=== PATIENT | female | born 1965 | race Caucasian/White ===

== ENCOUNTER 2023-12-24 04:14 | Emergency (ER) | payer OTHER, SELFPAY ==
[2023-12-24 04:26] VITALS: BP 133/90; PULSE 102; RESP 16; TEMP 36.7; O2SAT 96; BMI 33.1
--- NOTE | 2023-12-24 04:54 | CRLHL7_ITS ---
For Patients: As a result of the Century Cures Act, medical imaging exams and procedure reports are released immediately into your electronic medical record. You may view this report before your referring provider. If you have questions, please contact your health care provider. Indication: Fall with left-sided pain Technique: The examination consists of an AP view of the pelvis and a lateral view of each hip. Comparison: None Findings: Bone mineral density is decreased. There are degenerative changes of the visualized lower lumbar spine. Bilateral hip arthroplasties are noted. There is no visible acute fracture, dislocation or destructive process involving the pelvis or either hip. No visible complication of the arthroplasties. No abnormal periimplant lucency Impression: Demineralization and degenerative change. Bilateral hip arthroplasties. No visible acute fracture, dislocation or destructive process. Dictated by Everette Mi MD @ 12/24/2023 6:29:45 AM (Electronically Signed)
--- NOTE | 2023-12-24 04:54 | CRLHL7_ITS ---
For Patients: As a result of the Cures Act, medical imaging exams and procedure reports are released immediately into your electronic medical record. You may view this report before your referring provider. If you have questions, please contact your health care provider. Indication: Injury with pain Technique: Three views of the cervical spine were acquired Comparison: None Findings: Straightening. Degenerative changes. Postsurgical changes related to anterior cervical fusion. Atherosclerotic vascular calcifications. No visible acute osseous abnormality Impression: Straightening. Degenerative changes. Postsurgical changes. No visible acute osseous abnormality. Dictated by Everette Mi MD @ 12/24/2023 6:17:43 AM (Electronically Signed)
--- NOTE | 2023-12-24 04:54 | CRLHL7_ITS ---
For Patients: As a result of the Cures Act, medical imaging exams and procedure reports are released immediately into your electronic medical record. You may view this report before your referring provider. If you have questions, please contact your health care provider. Indication: Injury with pain Technique: A total of three-view of the left shoulder were acquired. Comparison: None Findings: Bones: Alignment is normal. No fractures or bone lesions. Joint spaces: No dislocation. Degenerative changes of the acromioclavicular joint. Cystic degenerative change at the greater tuberosity. Soft tissues: Unremarkable. Impression: Degenerative changes. No visible acute fracture, dislocation or destructive process. Dictated by Everette Mi MD @ 12/24/2023 6:27:53 AM (Electronically Signed)
--- NOTE | 2023-12-24 06:47 | ED_ITS ---
HPI - General Adult General Date Seen: 12/24/23 Chief complaint: Fall/Minor Trauma Stated complaint: Fell at work Time Seen by Provider: 12/24/23 04:39 Source: patient Mode of arrival: ambulatory Limitations: no limitations History of Present Illness HPI narrative: 58-year-old female with a history of bilateral hip replacements and neck surgery who was walking on a dim we lit sidewalk when she stumbled and fell landing on her left side. Her main pain is in the left hip area. She has been told that any time she falls she needs to have x-rays done to make sure she did disrupt her surgical hardware. She has little discomfort from a scrape on her left palm. She is ambulatory. She does not normally take any pain medications. She denies head injury or loss of consciousness. She has continued to stiffen up over the past several hours. Related Data Home Medications ?Medication ?Instructions ?Recorded ?Confirmed rosuvastatin 10 mg tablet 10 mg PO QPM 12/12/22 12/12/22 sertraline 100 mg tablet 100 mg PO DAILY 12/12/22 12/12/22 trazodone 50 mg tablet PO 12/12/22 Previous Rx's ?Medication ?Instructions ?Recorded prednisone 20 mg tablet 20 mg PO BID #6 tabs 12/12/22 oxycodone 5 mg tablet 5 mg PO Q8H PRN pain #10 tabs 12/24/23 Allergies Allergy/AdvReac Type Severity Reaction Status Date / Time amoxicillin [From Augmentin] Allergy Verified 12/12/22 08:47 clavulanic acid Allergy Verified 12/12/22 08:47 [From Augmentin] Review of Systems Narrative: Review of systems is outlined above otherwise noted to be negative. PFSH PFSH Social History Smoking Status: Current every day smoker What tobacco products do you use: cigarettes Smoking packs per day: 1 Smoking cigarettes per day: 20.0 Years smoked: 40 Smoking pack-years: 40.00 Do you use any of these nicotine containing products: None Second hand tobacco smoke exposure: No How often do you have a drink containing alcohol: monthly or less How many standard drinks containing alcohol do you have on a typical day: 1 or 2 How often do you have six or more drinks on one occasion: Less than monthly AUDIT-C Alcohol total score: 2 Non-prescribed substance use: marijuana (any form) service: No Exam Narrative: Exam Narrative: Vitals noted. Lungs are clear. Heart is regular rate rhythm without murmur. No abdominal tenderness. No CVA tenderness. She jumps dramatically with even light touch along her paraspinous muscles. There is no bony tenderness. He is also very sensitive with light touch along the lateral aspect of her left hip. She is able to stand and bear weight. Her range of motion is full as long as the movement is done very slowly. The there is a minor abrasion to the left palm. Wrist range of motion is full. Cervical range of motion does not elicit any radicular symptoms. She has some discomfort with movement of her left sh oulder but range of motion is full. No swelling or bruising is noted. No outward evidence of head trauma. Const: Vital Signs, click to edit/add: Vital Signs - 24 hr 12/24/23 04:26 Temperature 98.1 F Pulse Rate [Pulse Oximeter] 102 H Respiratory Rate 16 Blood Pressure [Ri ght Upper Arm] 133/90 H Pulse Oximetry 96 Oxygen Delivery Me thod Room Air Course Course ED Course: Patient seen and examined. I will low index of suspicion that there are any fractures. I did x-ray her left shoulder, cervical spine, pelvis including both hips. All of her x-rays are unremarkable. When I return to the exam room she is sleeping comfortably. Vital Signs Vital signs: Initial Vital Signs Temperature 98.1 F 12/24/23 04:26 Temperature Source Temporal Artery Scan 12/24/23 04:26 Pulse Rate 102 H 12/24/23 04:26 Respiratory Rate 16 12/24/23 04:26 Blood Pressure 133/90 H 12/24/23 04:26 Blood Pressure Mean 104 12/24/23 04:26 Blood Pressure Position Supine 12/24/23 04:26 Pulse Oximetry 96 12/24/23 04:26 Oxygen Delivery Method Room Air 12/24/23 04:26 Vital Signs Temperature 98.1 F 12/24/23 04:26 Pulse Rate 102 H 12/24/23 04:26 Respiratory Rate 16 12/24/23 04:26 Blood Pressure 133/90 H 12/24/23 04:26 Pulse Oximetry 96 12/24/23 04:26 Oxygen Delivery Method Room Air 12/24/23 04:26 Temperature 98.1 F 12/24/23 04:26 Pulse Rate 102 H 12/24/23 04:26 Respiratory Rate 16 12/24/23 04:26 Blood Pressure 133/90 H 12/24/23 04:26 Pulse Oximetry 96 12/24/23 04:26 Oxygen Delivery Method Room Air 12/24/23 04:26 Discharge Plan Discharge Clinical Impression: Contusion of multiple sites Patient Disposition: Home, Self-Care Condition: Stable Additional Instructions: Rest, ice, gentle stretching. Ibuprofen 600 mg three times daily, Tylenol 1000 mg three times daily. Oxycodone for refractory pain. Follow up with your PCP in 3-5 days if symptoms are worsening or not improving. Prescriptions: New oxycodone 5 mg tablet 5 mg PO Q8H PRN (Reason: pain) Qty: 10 0RF No Action trazodone 50 mg tablet PO sertraline 100 mg tablet 100 mg PO DAILY rosuvastatin 10 mg tablet 10 mg PO QPM prednisone 20 mg tablet 20 mg PO BID Qty: 6 0RF Follow Up/Referrals: MYLA RAYGOZA DO [Primary Care Provider] - Stand Alone Forms: [email or web address] Info Instructions
== END 2023-12-24 07:16 | disposition home or self-care (01) ==
PROVIDERS: Emergency Provider Family Medicine; PCP Student in an Organized Health Care Education/Training Program
DX: S70.02XA Contusion of left hip, initial encounter (principal); S60.222A Contusion of left hand, initial encounter; W01.10XA Fall on same level from slipping, tripping and stumbling with subsequent striking against unspecified object, initial encounter
CPT/HCPCS: 72040; 73030; 73521; 99282; 99283

== ENCOUNTER 2025-06-03 15:19 | Emergency (ER) | payer SELFPAY ==
[2025-06-03] VITALS (11 sets, daily range): BP systolic 102–123; BP diastolic 75–84; PULSE 79–98; RESP 20–24; TEMP 36.3; O2SAT 85–95
--- OUTSIDE RECORDS SUMMARY | 2025-06-03 15:21 | XMS_ITS | Clinical Summary ---
Author Organization [employer] [facility] Address [address] [place] [id number] Care Team Providers Care Geomatics Professor Name Role Phone Venkata [place] Ivonne Talley Unavailable Velia Mccallum PharmD Unavailable [phone] Allergies Active Allergy Reactions Criticality Noted Date Comments Amoxicillin-Pot Clavulanate Rash,Nausea And Vomiting 05/21/2008 Azithromycin Rash 01/12/2014 Medications cetirizine (ZYRTEC) 10 mg tabletIndications: Environmental allergies Take 1 tablet by mouth once daily. 90 tablet 3 05/17/20 15 Active durable medical equipment (DME)Indications:B ilateral primary osteoarthritis of hip,Chronic bilateral low back pain, unspecified whether sciatica present,Lumbar foraminal stenosis Can, quad cane or similar 1 Each 03/10/20 Active Elevated Toilet Seat with ArmsIndications:St atus post left hip replacement For home use. 1 Each 05/13/20 Active WalkerIndications: Status post left hip replacement Walker with front wheels for home use. 1 Each 05/13/20 Active Elevated Toilet Seat with ArmsIndications:St atus post right hip replacement For home use. 1 Each 08/04/19 Active WalkerIndications: Status post right hip replacement Walker with front wheels for home use. 1 Each 08/04/19 Active acetaminophen (TYLENOL EXTRA STRGTH) 500 mg tabletIndications: Status post right hip replacement Take 2 Tablets (1,000 mg) by mouth every 6 hours. Max acetaminophen dose: 4000mg in 24 hrs. 60 Tablet 2 3:08 PM IT HELP DESK MANAGER 08/04/19 22 Active gabapentin (NEURONTIN) 100 mg capsuleIndications :Foraminal stenosis of lumbar region,Foraminal stenosis of lumbosacral region,Peripheral sensory neuropathy TAKE 3 CAPSULES(300 MG) BY MOUTH TWICE DAILY 180 Capsule 2 03/26/20 22 Active Deep Sea Nasal [place] 0.65 % nasal solutionIndication s:Viral sinusitis INHALE 1 SPRAY INTO AFFECTED NOSTRILS EVERY 30 MINUTES IF NEEDED FOR NASAL CONGESTION. 44 mL 03/26/20 22 Active cholecalciferol (VITAMIN D3) 2,000 unit capsule Take 1 Capsule (2,000 units) by mouth once daily. 0 10/07/19 23 Active olopatadine (PATANOL) 0.1 % ophthalmic solution Place 1 Drop into both eyes once daily if needed. allergies 5 mL 11 10/07/19 23 Active fluticasone (50 mcg per actuation) nasal solution (FLONASE)Indicatio ns:Viral sinusitis Inhale 2 Sprays to both nostrils once daily if needed for Rhinitis. 16 g 10/07/19 23 Active medication order composer Balance of nature fruit and vegetable capsules daily 0 10/07/19 23 Active clindamycin (CLEOCIN) 300 mg capsuleIndications :Status post total hip replacement, right TAKE 2 CAPSULES BY MOUTH 1 HOUR PRIOR TO ANY DENTAL PROCEDURE, INCLUDING ROUTINE CLEANING. 6 Capsule 3 10/13/19 23 Active desonide 0.05% (TRIDESILON 0.05% CREAM) 0.05 % creamIndications:L ichen sclerosus Apply topically to affected area(s) two times daily. Apply to affected area twice daily 15 g 3 11/04/19 23 Active clobetasol cream 0.05% (TEMOVATE) 0.05 % creamIndications:L ichen sclerosus Apply topically to affected area(s) two times daily. Apply to affected area twice daily 30 g 11/04/19 23 Active polyethylene glycol-electrolyte (GOLYTELY) 236-22.74-6.74 -5.86 gram suspensionIndicati ons:Encounter for screening colonoscopy Drink 2 liters the day before the procedure and 2 liters 6 hours prior to procedure 4000 mL 01/07/20 23 Active cyclobenzaprine (FLEXERIL) 10 mg tabletIndications: Bilateral primary osteoarthritis of hip TAKE 1 TABLET(10 MG) BY MOUTH THREE TIMES DAILY 90 Tablet 1 02/02/20 23 Active traZODone (DESYREL) 50 mg tabletIndications: Insomnia due to other mental disorder TAKE 2 TABLETS(100 MG) BY MOUTH AT BEDTIME NEEDED FOR SLEEP 180 Tablet 08/05/19 24 Active rosuvastatin (CRESTOR) 10 mg tabletIndications: Mixed hyperlipidemia TAKE 1 TABLET(10 MG) BY MOUTH AT BEDTIME 90 Tablet 11/03/19 24 Active sertraline (ZOLOFT) 100 mg tabletIndications: Adjustment disorder with mixed anxiety and depressed mood TAKE 1 TABLET(100 MG) BY MOUTH EVERY MORNING 90 Tablet 3 11/18/19 24 Active Active Problems Problem Noted Date Diagnosed Date Primary osteoarthritis of right hip 07/30/2021 Sleep disorder 05/12/2021 Overview (05/12/2021): Home med Adjustment disorder with mixed anxiety and depre ssed mood 04/12/2021 Lumbar radicular pain 02/06/2014 Osteoarthritis of left hip 02/06/2014 Lichen planus 07/02/2008 Immunizations Immunization Administration Dates Next Due AMB Influenza, IIV3 (Age >=3 years)(Flu Clinic Only) 05/21/2008 COVID-19 vaccine (Moderna 10 0mcg/0.5mL) PF, MDV 09/11/2020 Hepatitis B (Adult) 01/14/2001,09/20/2000 Hepatitis B, Unspecified 05/21/2018 Influenza Virus, Unspecified 05/16/2018 Influenza, IIV3 (Age >=3 years) 05/17/2013,05/23,06/03/2006 Influenza, IIV4 03/27/2021 Influenza,CCIIV4 PRESERV FREE 04/07/2022 Pneumococcal Conj 20-valent (Prevnar 20) 023 Pneumococcal Poly,23-Valent (Pneumovax) 03/27/20 21 Td (Age >=7 Years) 08/15/2002 Tdap 10/06/2022,08/30/2008 Tuberculin Skin Test, Unspecified 03/01/2020 Zoster (Shingrix-RZV, recombinant) 06/19/2021,09 /03/2021 Family History Medical History Relation Name Comments Heart Disease Daughter 5 PFO Diabetes Father Other Father emphysema, smok er Diabetes Maternal Grandfather Cancer-breast Maternal Grandmother breast cancer, 40's Diabetes Maternal Grandmother Cancer Mother ovarian cancer Diabetes Paternal Grandfather Diabetes Paternal Grandmother Asthma Sister 5 Diabetes Sister 6 Other Sister 7 endometriosis Other Sister 8 obesity in 2 cleemnt lf-sisters Relation Name Status Comments Brother 1 Alive Brother 2 Alive Daughter 1 Alive Daughter 2 Alive Daughter 3 Alive Daughter 4 Alive Daughter 5 Father (Age 69) Maternal Grandfather Maternal Grandmother Mother Alive Paternal Grandfather Paternal Grandmother Sister 1 Alive Sister 2 Alive Sister 3 Alive Sister 4 Alive Sister 5 Sister 6 Sister 7 Sister 8 Son 1 Alive Son 2 Alive Son 3 Alive Social History Tobacco Use Types Packs/Day Years Used Date Smoking Tobacco: Every Day Cigarettes 0.5 20 Smokeless Tobacco: Never Tobacco Cessation:Ready to Q uit: Yes; Counseling Given: Yes Alcohol Use Standard Drinks/Week Comments Not Currently 0 (1 standard drink = 0.6 oz pur e alcohol) PHQ-2 Answer Date Recorded PHQ-2 TOTAL SCORE 6 10/06/2022 Social Connections Answer Date Recorded Frequency of Communication with Friends and Fami ly Not on file 07/10/2021 Financial Resource Strain Answer Date R ecorded Difficulty of Paying Living Expenses Not on file 07/10/2021 Difficulty of Paying Living Expenses Not on file 07/10/2021 Comments No Sex and Gender Information Value Date Recorded Sex Assigned at Not on file Legal Sex Female 6:20 AM IT HELP DESK MANAGER Gender Identity Not on file Sexual Orientation Not on file 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 Not on file Not on file Not on file Obstetrics History Para Term AB IAB SAB Ectopic Multiple Livin g Live Births 9 7 7 2 2 Date Outcome GA Total Labor Labor/2nd/3rd Weight Sex Type Anes PTL Amanda A1 A5 Name Clin SAB SAB Term Term Term Term Term Term Term Last Filed Vital Signs Vital Sign Reading Time Taken Comments Blood Pressure 137/81 10/06/2022 9:30 AM CDT Pulse 76 10/06/2022 9:30 AM CDT Temperature 36.6 C (97.9 F) 08/04/2021 2:33 PM IT HELP DESK MANAGER Respiratory Rate 16 08/04/2021 2:33 PM IT HELP DESK MANAGER Oxygen Saturation 97% 10/06/2022 9:30 AM CDT Inhaled Oxygen Concentration - - Weight 100.3 kg (221 lb 3.2 oz) 10/06/2022 9:30 AM CDT Height 165.1 cm (5' 5) 10/06/2022 9:30 AM CDT Body Mass Index 36.81 10/06/2022 9:30 AM CDT Plan of Treatment Health Maintenance Due Date Last Done Comments Colonoscopy through age 75 10/01/2011 Mammogram for age 45-75 05/17/2014 05/17/2013 BMI (ht and wt on same day) for age 18+ 10/07/2023 10/06/2022, 05/09/2021 Depression screening for age 12+ 10/09/2023 10/08/2022, 10/08/2022, 10/06/2022, Additional history exists Influenza Vaccine (#1) 2025 , 03/27/2021, 05/16/2018, Additional history exists Lipids for age 45-75 10/07/2027 10/06/2022, 05/19/20 12 Tetanus booster 10/06/2032 10/06/2022, 08/19, 08/15/2002 RSV vaccine for adults or (1 - 1-dose 75+ series) 2041 Hepatitis B series for 19+ Completed 05/21, 01/14/2001, 09/20/2000 Zoster (shingles) series for age 50+ Completed 06/19/2021, 03/27/2021 HIV for age 15-65 Completed 10/06/2022 Hepatitis C screening for ag e 18-79 Completed 10/06/2022 Pneumococcal series for age 50+ Completed 3, 03/27/2021 Medical Devices Implanted Type Area Pilot Can Router Device Identifier Shelf Expiration Date Model / Serial / Lot Screw Sm Joint 6.5x30mm Canclls Bone - [id number] Implanted:Qty: 1 on 05/12/2021 by Oni Ny MD at [facility].,Screw s & Plates Left: Hip [employer] 02/01/2024 1298-2799 -1 / / [id number] Screw Sm Joint 6.5x25mm Canclls Bone - [id number] Implanted:Qty: 1 on 05/12/2021 by Oni Ny MD at [facility].,Screw s & Plates Left: Hip [employer] 09/06/2025 / / [id number] Shell Hip Od50mm Trident Psl Cluster Clement - [id number] Implanted:Qty: 1 on 05/12/2021 by Oni Ny MD at [facility] Left: Hip [employer] 06/21/2024 542-11-50 E / / [id number] Screw Sm Joint 6.5x16mm Canclls Bone - [id number] Implanted:Qty: 1 on 05/12/2021 by Oni Ny MD at [facility] Left: Hip [employer] 01/15/2026 / / [id number] Stem Hip Sz 6 127 Deg Accolade Ii - [id number] Implanted:Qty: 1 on 05/12/2021 by Oni Ny MD at [facility] Left: Hip [employer] 03/21/2026 [id number] / / [id number] Head Hip Od36mm -2.5 Biolox Delta C-Taper Alumina Cer - [id number] Implanted:Qty: 1 on 05/12/2021 by Oni Ny MD at [facility] Left: Hip [employer] 02/27/2026 6570-0-43 6 / / [id number] Insert Trident X3 Polyethylene Implanted:Qty: 1 on 05/12/2021 by Oni Ny MD at [facility] Left: Hip 01/28/2026 723-10-36 E / / [id number] Description:INSERT TRIDENT X 3 POLYETHYLENE Screw Hip 6.5x15mm Rickie Low Profile Hex - [id number] Implanted:Qty: 1 on 08/04/2021 by Oni Ny MD at [facility] Right: Hip [employer] 12/18/2025 7121-9915 / / [id number] Insert Sz E 36mm 10 Deg Trident X3 - [id number] Implanted:Qty: 1 on 08/04/2021 by Oni yN MD at [facility] Right: Hip [employer] 05/04/2026 723-10-36 E / / [id number] Stem Hip Sz 6 127 Deg Accolade Ii - [id number] Implanted:Qty: 1 on 08/04/2021 by Oni Ny MD at [facility] Right: Hip [employer] 06/25/2026 5449-7555 / / [id number] Head Hip Od36mm +0 Biolox Delta C-Taper Alumina Cer - [id number] Implanted:Qty: 1 on 08/04/2021 by Oni Ny MD at [facility] Right: Hip [employer] 04/22/2026 6570-0-13 6 / / [id number] Acet Shell Trident Ii Multihole 52mm E Implanted:Qty: 1 on 08/04/2021 by Oni Ny MD at [facility] Right: Hip 10/24/2025 709-04-52 E / / [id number] Description:ACET SHELL TRIDE NT II MULTIHOLE 52MM E Screw Hip 6.5x35mm [employer] Low Profile Hex - [id number] Implanted:Qty: 1 on 08/04/2021 by Oni Ny MD at [facility] Right: Hip [employer] 4136-9183 / / [id number] Screw Hip 6.5x30mm Rickie Low Profile Hex - [id number] Implanted:Qty: 1 on 08/04/2021 by Oni Ny MD at [facility] Right: Hip [employer] 04/07/2026 6206-6775 / / [id number] Screw Hip 6.5x15mm Rickie Low Profile Hex - [id number] Implanted:Qty: 1 on 08/04/2021 by Oni Ny MD at [facility] Right: Hip [employer] 11/26/2025 4701-1178 / / YPA Screw Hip 6.5x15mm Rickie Low Profile Hex - [id number] Implanted:Qty: 1 on 08/04/2021 by Oni Ny MD at [facility] Right: Hip [employer] 11/26/2025 4559-2427 / / YJD Procedures Procedure Name Priority Date/Time Associated Diagnosis Comments LC HIV-1/O/2, 4TH GENERATION Routine 10/06/2022 10:55 AM CDT Screening for HIV (human immunodeficiency virus) LC HCV ANTIBODY RFX TO QUANT PCR Routine 10/06/2022 10:55 AM CDT Need for hepatitis C screening test LC LIPID PANEL AND CHOL/HDL RATIO Routine 10/06/2022 10:55 AM CDT Screening for lipid disorders XR MAMMO BILAT SCREEN FFDM (IA) Routine 05/17/2013 11:33 AM CDT Other screening mammogram from Last 3 Months or Most Recently Relevant to Health Maintenance Results * (ABNORMAL) LC LIPID PANEL AND CHOL/HDL RATIO (10/06/2022 10:55 AM CDT) Cholesterol, Total 231(H) 100 - 199 mg/dL 10/08/2022 8:37 AM CDT [facility] Triglycerides 250(H) 0 - 149 mg/dL 10/08/2022 8:37 AM CDT [facility] ([facility]) HDL Cholesterol 43 >39 mg/dL 8:37 AM CDT [facility] ([facility] VLDL Cholesterol Augustin 45(H) 5 - 40 mg/dL 10/08/2022 8:37 AM CDT [facility] ([facility] LDL Chol Calc (NIH) 143(H) 0 - 99 mg/dL 10/08/2022 8:37 AM CDT [facility] ([facility] T. Chol/HDL Ratio 5.4(H) 0.0 - 4.4 ratio 10/08/2022 8:37 AM CDT [facility] ([facility]) Comment: T. Chol/HDL Ratio Men Women 1/2 Avg.Risk 3.4 3.3 Avg.Risk 5.0 4.4 2X Avg.Risk 9.6 7.1 3X Avg.Risk 23.4 11.0 Blood BLOOD SPECIMEN / Unknown Venipuncture / Unknown 10/06/2022 10:55 AM CDT 10/06/2022 10:58 AM CDT Narrative [facility] ([facility]) - 10/08/2022 8:37 AM CDT Performed at: [facility] [address] [place], [place] [id number] Shower Screen Installer: Virgilio Grijalva MD, Phone: [phone] us Adei Shaqra DO SEND OUTS Final Result Performing Organization Address [facility] Co de Phone Number [facility] ([facility]) [address] [place] [address], [place] * LC HCV ANTIBODY RFX TO QUANT PCR (10/06/2022 10:55 AM CDT) Pathologist [facility] [place] HCV Ab Non Reactive Non Reactive 10/08/2022 11:06 PM CDT [facility] ([facility]) Blood BLOOD SPECIMEN / Unknown Venipuncture / Unknown 10/06/2022 10:55 AM CDT 10/06/2022 10:58 AM CDT Narrative [facility] ([facility]) - 10/08/2022 11:06 PM CDT Performed at: [address] [id number] Shower Screen Installer: Virgilio Grijalva MD, Phone: [phone] us Adei Jongqra DO LABORATORY Final Result Performing Organization Address [facility]/ZIP Co de Phone Number [facility] ([facility]) [address] [place] [address], [place] * LC HIV-1/O/2, 4TH GENERATION (10/06/2022 10:55 AM CDT) Pathologist [facility] [place] HIV Scr 4th Gen Non Reactive Non Reactive 10/09/2022 1:07 AM CDT [facility] ([facility] Comment: HIV Negative HIV-1/HIV-2 antibodies and HIV-1 p24 antigen were NOT detected. There is no laboratory evidence of HIV infection. Blood BLOOD SPECIMEN / Unknown Venipuncture / Unknown 10/06/2022 10:55 AM CDT 10/06/2022 10:58 AM CDT Narrative [facility] ([facility]) - 10/09/2022 1:07 AM CDT Performed at: 01 - [facility] [address] [place] [id number] Shower Screen Installer: Virgilio Grijalva MD, Phone: [phone] us Peterson Dickinson DO LABORATORY Final Result [facility] ([facility]) [facility] [place] [address], [place] * XR MAMMO BILAT SCREEN FFDM (05/17/2013 11:33 AM CDT) Anatomical Region Laterality Modality BREASTS, Breast Left, Breast Right Bilateral Mammography Impressions 05/18/2013 12:31 PM CDT There is no radiographic evidence for malignancy. Recommend annual mammograms. A lay language report of this examination will be provided to the patient. MAMMOGRAM ASSESSMENT: ACR 2 Benign Narrative 05/18/2013 12:31 PM CDT XR MAMMO BILAT SCREEN FFDM [G0202.0] CLINICAL HISTORY: This is an asymptomatic 47 y.o. patient. INDICATION FOR EXAM: Mammogram Screening. TECHNIQUE: CC & MLO views were obtained. This digital study was evaluated with the assistance of Computer-Aided Detection. COMPARISON FILMS: This is a baseline study. FINDINGS: Mammographically, the breast tissue is almost entirely fat (<25% glandular). No suspicious masses or microcalcifications. Benign appearing calcifications within left breast. Procedure Note Lalo Smith MD - 05/18/2013 XR MAMMO BILAT SCREEN FFDM [G0202.0] CLINICAL HISTORY: This is an asymptomatic 47 y.o. patient. INDICATION FOR EXAM: Mammogram Screening. TECHNIQUE: CC & MLO views were obtained. This digital study was evaluatedwith the assistance of Computer-Aided Detection. COMPARISON FILMS: This is a baseline study. FINDINGS: Mammographically, the breast tissue is almost entirely fat(<25% glandular). No suspicious masses or microcalcifications. Benignappearing calcifications within left breast. IMPRESSION: There is no radiographic evidence for malignancy. Recommendannual mammograms. A lay language report of this examination will be provided to the patient. MAMMOGRAM ASSESSMENT: ACR 2 Benign Samantha Lopez Khoa DO MAMMO Final Resu lt from Last 3 Months or Most Recently Relevant to Health Maintenance Insurance [facility] Advance Directives * Full Code (Latest Code Status on File) Date Activated Date Inactivated Comments 08/04/2021 5:56 AM 08/04/2021 5:11 PM Question Answer Comments Code Status Discussion: Not Discussed * Full Code Date Activated Date Inactivated Comments 05/12/2021 6:06 AM 05/13/2021 2:29 PM Question Answer Comments Code Status Discussion: Not Discussed Care Teams Geomatics Professor Relationship Specialty Start Date End Date [facility] [address] [place] [address] 08/04/21 Velia Mccallum, PharmD [address] [address] Pharmacology 11/03/22
--- NOTE | 2025-06-03 15:27 | ED.GENADULT ---
HPI - General Adult General Chief complaint: Shortness of Breath/Dyspnea Stated complaint: chest tightness, shortness of breath Time Seen by Provider: 06/03/25 15:20 History of Present Illness HPI narrative: This 59-year-old female comes in reporting worsening shortness of breath. She states that she has had a cough for a couple weeks but things became worse in the last day or so. She arrives here with oximetry at 85% on room air. She is a smoker and states that she quit 2 days ago. She does not take any medicines for breathing and is not on oxygen at home. She does not report any fevers. Related Data Home Medications ?Medication ?Instructions ?Recorded ?Confirmed rosuvastatin 10 mg tablet 10 mg PO QPM 12/12/22 12/12/22 trazodone 50 mg tablet PO 12/12/22 Previous Rx's ?Medication ?Instructions ?Recorded prednisone 20 mg tablet 20 mg PO BID #6 tabs 12/12/22 oxycodone 5 mg tablet 5 mg PO Q8H PRN pain #10 tabs 12/24/23 methylprednisolone 4 mg tablets in See Rx Instructions PO .COMPLEX 06/03/25 a dose pack (Medrol (Rolf)) #21 ea Allergies Allergy/AdvReac Type Severity Reaction Status Date / Time amoxicillin (From Augmentin) Allergy Verified 06/03/25 15:33 clavulanic acid (From Allergy Verified 06/03/25 15:33 Augmentin) Review of Systems Status of ROS: Reports: 10 or more systems reviewed and unremarkable except as noted in History and below Narrative: Constitutional: No fevers, no weight gain or loss. Eyes: No discharge. No vision changes. HENT: No congestion, no sore throat, no ear pain. Cardiovascular: No chest pain, no palpitations. Respiratory: Cough and shortness of breath. Gastrointestinal: No abdominal pain, no vomiting, no diarrhea. Genitourinary: No dysuria, no hematuria. Musculoskeletal: Normal range of motion. Skin: No rashes, no pruritis. Neurological: No dizziness, weakness, sensory change, speech change. Endo/Heme/Allergies: No bruising or bleeding. No polydipsia. Pysch: no suicidality, no anxiety, no insomnia. All other systems reviewed and are negative. PFSH PFSH Social History Smoking Status: Current every day smoker What tobacco products do you use: cigarettes Smoking packs per day: 1 Smoking cigarettes per day: 20.0 Years smoked: 40 Smoking pack-years: 40.00 Do you use any of these nicotine containing products: None Second hand tobacco smoke exposure: No How often do you have a drink containing alcohol: monthly or less How many standard drinks containing alcohol do you have on a typical day: 1 or 2 How often do you have six or more drinks on one occasion: Less than monthly AUDIT-C Alcohol total score: 2 Non-prescribed substance use: marijuana (any form) service: No Exam Narrative: Exam Narrative: Constitutional: Well-developed, well-nourished, no acute distress. HEENT: Normocephalic, atraumatic. Neck: Normal range of motion. Nontender. Supple. Heart: Regular. No murmurs. Normal rate. Intact distal pulses. Lungs: Bilateral rhonchi and wheezing with some use of accessory muscles for breathing. Frequent coughing. Abdomen: Normal bowel sounds. Nontender. No rebound tenderness. Genitalia: Deferred. Back: No midline tenderness. Normal range of motion. Extremities: Normal range of motion. No injury. Skin: Intact. No rash. Warm. No erythema or pallor. Neurologic: No altered sensation. No weakness. Alert and oriented. Psychiatric: No suicidality. No anxiety or depression. No insomnia. Nursing notes and vitals signs are reviewed. Const: Vital Signs, click to edit/add: Vital Signs - 24 hr 06/03/25 15:25 06/03/25 15:40 06/03/25 15:42 Temperature 97.3 F L Pulse Rate 97 Pulse Rate [Pulse Oximeter] 89 Respiratory Rate 24 Blood Pressure [Ri ght Upper Arm] 123/84 Pulse Oximetry 85 L 91 Oxygen Delivery Me thod Room Air Nasal Cannula Oxygen Flow Rate 2 06/03/25 15:45 06/03/25 16:01 06/03/25 16:16 Temperature Pulse Rate 96 98 82 Pulse Rate [Pulse Oximeter] Respiratory Rate Blood Pressure [Ri ght Upper Arm] Pulse Oximetry 95 92 Oxygen Delivery Me thod Oxygen Flow Rate 06/03/25 16:30 06/03/25 16:45 Temperature Pulse Rate 82 81 Pulse Rate [Pulse Oximeter] Respiratory Rate 22 Blood Pressure [Ri ght Upper Arm] Pulse Oximetry 94 92 Oxygen Delivery Me thod Room Air Oxygen Flow Rate Course Vital Signs Vital signs: Initial Vital Signs Temperature 97.3 F L 06/03/25 15:25 Temperature Source Temporal Artery Scan 06/03/25 15:25 Pulse Rate 89 06/03/25 15:25 Respiratory Rate 24 06/03/25 15:25 Blood Pressure 123/84 06/03/25 15:25 Blood Pressure Mean 97 06/03/25 15:25 Pulse Oximetry 85 L 06/03/25 15:25 Oxygen Delivery Method Room Air 06/03/25 15:25 Vital Signs Temperature 97.3 F L 06/03/25 15:25 Pulse Rate 89 06/03/25 15:25 Respiratory Rate 24 06/03/25 15:25 Blood Pressure 123/84 06/03/25 15:25 Pulse Oximetry 85 L 06/03/25 15:25 Oxygen Delivery Method Room Air 06/03/25 15:25 Temperature 97.3 F L 06/03/25 15:25 Pulse Rate 81 06/03/25 16:45 Respiratory Rate 22 06/03/25 16:30 Blood Pressure 123/84 06/03/25 15:25 Pulse Oximetry 92 06/03/25 16:45 Oxygen Delivery Method Room Air 06/03/25 16:30 Oxygen Flow Rate 2 06/03/25 15:42 Medications Administered Medications: Discontinued Medications Generic Name Dose Route Start Last Admin Trade Name Constantine PRN Reason Stop Dose Admin Albuterol/Ipratropium 1 neb 06/03/25 15:45 06/03/25 16:14 Iprat-Albut 0.5-2.5 Mg/3 Ml Neb IH 06/03/25 15:46 1 neb ONCE ONE Administration Methylprednisolone Sodium Succinate 125 mg 06/03/25 15:45 06/03/25 16:14 Methylprednisolone Sod Succ 62.5 Mg/Ml (125) IVP 06/03/25 15:46 125 mg ONCE ONE Administration Medical Decision Making MDM Narrative Medical decision making narrative: This patient has a long history of smoking and quit smoking 2 days ago mostly because she has been feeling miserable with cough and worsening shortness of breath. She arrives here with oximetry at 85% on room air and improved to 90% with 2 L of nasal cannula. A chest x-ray is obtained which shows no acute findings. Labs also returned with reassuring results. The patient did receive an IV dose of Solu-Medrol 125 mg and also received a DuoNeb and states that she felt distinctly better with these treatments. She was now showing oximetry at 95% on 2 L nasal cannula. I re-examined her in turned off the oxygen and she resumed which is probably her baseline at around 90% oximetry. She is okay to return home but I stressed the importance of returning if worsening symptoms occur. She is interested in seeking help with medications or therapies to assist in quitting smoking. I advised her in that regard and recommended that she follow-up with her primary physician. She is sent home with prescriptions for Zithromax, Tylenol 3, and albuterol inhaler from the [employer] machine and a prescription for Medrol Dosepak from her pharmacy. Lab Data Labs: Lab Results 06/03/25 Range/Units 16:08 WBC 7.33 (4.50-11.00) K/uL RBC 5.54 H (4.00-5.20) m/uL Hgb 16.0 (12.0-16.0) gm/dL Hct 50.5 (33.0-51.0) % MCV 91 (80-100) fL MCH 29 (26-34) pg MCHC 32 (32-36) gm/dL RDW Coeff of Tanesha 12.3 (11.5-15.5) % Plt Count 150 (140-440) K/uL Neut % (Auto) 69.5 (42.0-72.0) % Lymph % (Auto) 19.5 L (20-44) % [place] % (Auto) 7.6 (0.0-11.0) % Eos % (Auto) 3.0 (0.0-7.0) % Baso % (Auto) 0.4 (0.0-3.0) % Neut # (Auto) 5.09 (1.7-7.0) K/uL Lymph # (Auto) 1.40 (0.90-2.90) K/uL [place] # (Auto) 0.60 (0.00-0.90) K/UL Eos # (Auto) 0.22 (0.00-0.50) K/uL Baso # (Auto) 0.03 (0.00-0.30) K/uL Abs Immat Gran (auto) 0.00 (0.00-0.30) K/uL Imm/Tot Granulo (auto) 0.0 % Sodium 139 (135-149) mmol/L Potassium 4.6 (3.6-5.1) mmol/L Chloride 102 (96-114) mmol/L Carbon Dioxide 33 H (20-32) mmol/L Anion Gap 4 L (7-15) mEq/L BUN 13 (7-30) mg/dL Creatinine 0.9 (0.5-1.5) mg/dL Estimated Creat Clear 63.78 Estimated GFR 74 ml/min Glucose 123 H (60-115) mg/dL Calcium 9.5 (8.4-10.6) mg/dL Imaging Data Chest x-ray: Radiologist's impression: Negative chest. ECG Data Attestation: I personally reviewed and interpreted this ECG as follows: Interpretation: Normal sinus rhythm. Rate is 94 beats per minute. There are no ST or T-wave abnormalities. Discharge Plan Discharge Clinical Impression: COPD exacerbation Patient Disposition: Home, Self-Care Condition: Improved Additional Instructions: Continue with smoking cessation and seek additional help from her primary physician in this regard. Take medications as prescribed. Follow up with MD otherwise as needed or return if worsening. Prescriptions: New methylprednisolone [Medrol (Rolf)] 4 mg tablets,dose pack See Rx Instructions .ROUTE .COMPLEX Qty: 21 0RF Rx Instructions: orally per package directions No Action oxycodone 5 mg tablet 5 mg PO Q8H PRN (Reason: pain) Qty: 10 0RF trazodone 50 mg tablet PO rosuvastatin 10 mg tablet 10 mg PO QPM prednisone 20 mg tablet 20 mg PO BID Qty: 6 0RF Follow Up/Referrals: MYLA RAYGOZA DO [Primary Care Provider, Family Practice] Stand Alone Forms: [employer] Info Instructions
--- NOTE | 2025-06-03 15:46 | CRLHL7_ITS ---
For Patients: As a result of the Century Cures Act, medical imaging exams and procedure reports are released immediately into your electronic medical record. You may view this report before your referring provider. If you have questions, please contact your health care provider. INDICATION: Chest tightness TECHNIQUE: : Two view chest. FINDINGS: The lungs are clear. The heart, mediastinum and pulmonary vessels are of normal size. There is no pleural disease. Cervical fusion change IMPRESSION: Negative chest. Dictated by Marianna Vera MD @ 06/03/2025 4:19:18 PM (Electronically Signed)
[2025-06-03] MEDS: IPRAT-ALBUT 0.5-2.5 MG/3 ML NEB 1 NEB IH (16:14)
[2025-06-03] MEDS: METHYLPREDNISOLONE SOD SUCC 62.5 MG/ML (125) 125 MG IVP (16:14)
[2025-06-03 16:15] LABS: Hematocrit* 50.5 % (33.0-51.0); Hemoglobin* 16.0 gm/dL (12.0-16.0); Immature Granulocytes Abs Auto 0.00 K/uL (0.00-0.30); Immature Granulocytes Pct Auto 0.0 %; Mean Corpuscular HGB Conc 32 gm/dL (32-36); Mean Corpuscular Hemoglobin 29 pg (26-34); Mean Corpuscular Volume 91 fL (80-100); RDW Coefficient of Variation % 12.3 % (11.5-15.5); Red Blood Count* 5.54 m/uL (4.00-5.20); White Blood Count* 7.33 K/uL (4.50-11.00)
[2025-06-03 16:18] LABS: Lymphocytes Absolute Auto 1.40 K/uL (0.90-2.90); Slide Review Reflex No
[2025-06-03 16:28] LABS: Chloride* 102 mmol/L (96-114); Potassium* 4.6 mmol/L (3.6-5.1); Sodium* 139 mmol/L (135-149)
[2025-06-03 16:31] LABS: Anion Gap 4 mEq/L (7-15); Blood Urea Nitrogen* 13 mg/dL (7-30); Carbon Dioxide* 33 mmol/L (20-32); Creatinine* 0.9 mg/dL (0.5-1.5); Est. Creatinine Clearance* 63.78; Estimated Glomerular Filt Rate 74 ml/min
[2025-06-03 16:32] LABS: Calcium* 9.5 mg/dL (8.4-10.6); Glucose* 123 mg/dL (60-115)
== END 2025-06-03 17:41 | disposition home or self-care (01) ==
PROVIDERS: Emergency Provider Emergency Medicine Emergency Medical Services; PCP Student in an Organized Health Care Education/Training Program
DX: J44.1 Chronic obstructive pulmonary disease with (acute) exacerbation (principal); Z87.891 Personal history of nicotine dependence
CPT/HCPCS: 36415; 71046; 80048; 85025; 93005; 96374; 99284; 99285; J2919

== ENCOUNTER 2025-06-07 16:19 | Emergency (ER) | payer OTHER, SELFPAY ==
--- OUTSIDE RECORDS SUMMARY | 2025-06-07 16:21 | XMS_ITS | Clinical Summary ---
Author Organization [facility] Address [address] [place] [id number] Care Team Providers Care Food Server Name Role Phone Venkata Flushing Ivonne Talley Unavailable Velia Mccallum PharmD Unavailable [phone] Allergies Active Allergy Reactions Criticality Noted Date [...] 24 hrs. 60 Tablet 2 3:08 PM CLINICAL PROJECT MANAGER 08/04/19 22 Active gabapentin (NEURONTIN) 100 mg capsuleIndications :Foraminal stenosis of lumbar region,Foraminal stenosis of lumbosacral region,Peripheral sensory neuropathy TAKE 3 CAPSULES(300 MG) BY MOUTH TWICE DAILY 180 Capsule 2 03/26/20 22 Active Deep Sea Nasal [place] 0.65 % nasal solutionIndication s:Viral sinusitis INHALE [...] of left hip 02/06/2014 Lichen planus 07/02/2008 Encounters Date Type Department Care Team Description 06/03/2025 Orders Only [facility] Scanner 1 scan: (1-Ord) [facility], XR CHEST 2V, 06/03/2025 from Last 3 Months Immunizations Immunization Administration Dates Next Due AMB [...] Skin Test, Unspecified 03/01/2020 Zoster (Shingrix-RZV, recombinant) 06/19/2021, Family History Medical History Relation Name Comments Heart Disease Daughter 5 PFO Diabetes Father Other Father emphysema, smok er Diabetes Maternal Grandfather Cancer-breast Maternal Grandmother breast cancer, 40's Diabetes Maternal Grandmother Cancer Mother ovarian cancer Diabetes Paternal Grandfather Diabetes Paternal Grandmother Asthma Sister 5 Diabetes Sister 6 Other Sister 7 endometriosis Other Sister 8 obesity in 2 clement lf-sisters Relation Name Status Comments Brother 1 [...] on file Legal Sex Female 6:20 AM CLINICAL PROJECT MANAGER Gender Identity Not on file Sexual Orientation Not on file 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 Not on file Not on file Not [...] 36.6 C (97.9 F) 08/04/2021 2:33 PM CLINICAL PROJECT MANAGER Respiratory Rate 16 08/04/2021 2:33 PM CLINICAL PROJECT MANAGER Oxygen Saturation 97% 10/06/2022 9:30 AM [...] Additional history exists Influenza Vaccine (#1) 2025 2, 03/27/2021, 05/16/2018, Additional history exists Lipids for [...] 3, 03/27/2021 Medical Devices Implanted Type Area Leaf Tinner Device Identifier Shelf Expiration Date Model / Serial / Lot Screw Sm Joint 6.5x30mm Canclls Bone - [id number] Implanted:Qty: 1 on 05/12/2021 by Oni Ny MD at [facility] Imp.,Screw s & Plates Left: Hip [employer] 02/01/20249211-5084 -1 / / [id number] Screw Sm Joint 6.5x25mm Canclls Bone - [id number] Implanted:Qty: 1 on 05/12/2021 by Oni Ny MD at [facility] Imp.,Screw s & Plates Left: Hip [employer] 09/06/2025 -1 / / [id number] Shell Hip Od50mm Trident Psl Cluster Clement - [id number] Implanted:Qty: 1 on 05/12/2021 by Oni Ny MD at [facility] Left: Hip [employer] 06/21/2024 542-11-50 E / / [id number] Screw Sm Joint 6.5x16mm Canclls Bone - [id number] Implanted:Qty: 1 on 05/12/2021 by Oni Ny MD at [facility] Left: Hip [employer] 01/15/2026 / / [id number] Stem Hip Sz 6 127 Deg Accolade Ii - [id number] Implanted:Qty: 1 on 05/12/2021 by Oni Ny MD at [facility] Left: Hip [employer] 03/21/2026 3204-5901 / / [id number] Head Hip Od36mm -2.5 Biolox Delta C-Taper Alumina Cer - [id number] Implanted:Qty: 1 on 05/12/2021 by Oni Ny MD at [facility] Left: Hip [employer] 02/27/2026 6570-0-43 6 / / [id number] Insert Trident X3 Polyethylene Implanted:Qty: 1 on 05/12/2021 by Oni Ny MD at [facility] Left: Hip 01/28/2026 723-10-36 E / / [id number] Description:INSERT TRIDENT X 3 POLYETHYLENE Screw Hip 6.5x15mm Rickie Low Profile Hex - [id number] Implanted:Qty: 1 on 08/04/2021 by Oni Ny MD at [facility] Right: Hip [employer] 12/18/2025 2371-9758 / / [id number] Insert Sz E 36mm 10 Deg Trident X3 - [id number] Implanted:Qty: 1 on 08/04/2021 by Oni Ny MD at [facility] Right: Hip [employer] 05/04/2026 723-10-36 E / / [id number] Stem Hip Sz 6 127 Deg [place]ade Ii - [id number] Implanted:Qty: 1 on 08/04/2021 by Oni Ny MD at [facility] Right: Hip [employer] 06/25/2026 5937-5389 / / [id number] Head Hip Od36mm +0 Biolox Delta C-Taper Alumina Cer - [id number] Implanted:Qty: 1 on 08/04/2021 by Oni Ny MD at [facility] Right: Hip [employer] 04/22/2026 6570-0-13 6 / / [id number] Acet Shell Trident Ii Multihole 52mm E Implanted:Qty: 1 on 08/04/2021 by Oni Ny MD at [facility] Right: Hip 10/24/2025 709-04-52 E / / [id number] Description:ACET SHELL TRIDE NT II MULTIHOLE 52MM E Screw Hip 6.5x35mm Rickie Low Profile Hex - [id number] Implanted:Qty: 1 on 08/04/2021 by Oni Ny MD at [facility] Right: Hip [employer] 5780-0111 / / [id number] Screw Hip 6.5x30mm Rickie Low Profile Hex - [id number] Implanted:Qty: 1 on 08/04/2021 by Oni Ny MD at [facility] Right: Hip [employer] 04/07/2026 0165-6282 / / [id number] Screw Hip 6.5x15mm [place] Low Profile Hex - [id number] Implanted:Qty: 1 on 08/04/2021 by Oni Ny MD at [facility] Right: Hip [employer] 11/26/2025 0128-9071 / / YPA Screw Hip 6.5x15mm Rickie Low Profile Hex - [id number] Implanted:Qty: 1 on 08/04/2021 by Oni Ny MD at [facility] Right: Hip [employer] 11/26/2025 [id number] / / YJD Procedures Procedure Name Priority Date/Time Associated Diagnosis Comments SCAN-RADIOLOGY REPORT 06/03/2025 12:00 AM CLINICAL PROJECT MANAGER LC HIV-1/O/2, 4TH GENERATION Routine 10/06/2022 10:55 [...] Recently Relevant to Health Maintenance Results * SCAN-RADIOLOGY REPORT (06/03/2025 12:00 AM CLINICAL PROJECT MANAGER) Anatomical Region Laterality Modality Other us Scanner OTHER Final Result * (ABNORMAL) LC LIPID PANEL AND CHOL/HDL RATIO (10/06/2022 10:55 AM CDT) Cholesterol, Total 231(H) 100 - 199 mg/dL 10/08/2022 8:37 AM CDT [facility] Triglycerides 250(H) 0 - 149 mg/dL 10/08/2022 8:37 AM CDT [facility] HDL Cholesterol 43 >39 mg/dL 8:37 AM CDT [facility] ([facility]) VLDL Cholesterol Augustin 45(H) 5 - 40 mg/dL 10/08/2022 8:37 AM CDT [facility] LDL Chol Calc ([facility]) 143(H) 0 - 99 mg/dL 10/08/2022 8:[address] [facility] ([facility]) T. Chol/HDL Ratio 5.4(H) 0.0 - 4.4 ratio 10/08/2022 8:[address] [facility] ([facility]) Comment: T. Chol/HDL Ratio Men Women 1/2 Avg.Risk 3.4 3.3 Avg.Risk 5.0 4.4 2X Avg.Risk 9.6 7.1 3X Avg.Risk 23.4 11.0 Blood BLOOD SPECIMEN / Unknown Venipuncture / Unknown 10/06/2022 10:55 AM CDT 10/06/2022 10:58 AM CDT [facility] ([facility]) - 10/08/2022 8:37 AM CDT Performed at: [address] [place] [id number] Lab Instructor: Virgilio Grijalva MD, Phone: [phone] us Peterson Dickinson DO SEND OUTS Final Result [facility] ([facility]) [facility] [place] [address], * LC HCV ANTIBODY RFX TO QUANT PCR (10/06/2022 10:55 AM CDT) HCV Ab Non Reactive Non Reactive 10/08/2022 11:[address] [facility] ([facility]) Blood BLOOD SPECIMEN / Unknown Venipuncture / Unknown 10/06/2022 10:55 AM CDT 10/06/2022 10:58 AM CDT [facility] ([facility]) - 10/08/2022 11:06 PM CDT Performed at: [address] [place] [id number] Lab Instructor: Virgilio Grijalva MD, Phone: [phone] us Peterson Dickinson DO LABORATORY Final Result Performing Organization Address City/[facility]/ZIP Co de Phone Number [facility] ([facility]) [address] [place] [address], [place] * LC HIV-1/O/2, 4TH GENERATION (10/06/2022 10:55 AM CDT) HIV Scr 4th Gen Non Reactive Non Reactive 10/09/2022 1:[address] [facility] ([facility]) Comment: HIV Negative HIV-1/HIV-2 antibodies and HIV-1 p24 antigen were NOT detected. There is no laboratory evidence of HIV infection. Blood BLOOD SPECIMEN / Unknown Venipuncture / Unknown 10/06/2022 10:55 AM CDT 10/06/2022 10:58 AM CDT Narrative [facility] ([facility]) - 10/09/2022 1:07 AM CDT Performed at: [address] [place] [address] [id number] Lab Instructor: Virgilio Grijalva MD, Phone: [phone] us Peterson Dickinson DO LABORATORY Final Result Performing Organization Address City/[facility] Co de Phone Number [facility] ([facility]) [address] [place] [address], [place] * XR MAMMO BILAT SCREEN FFDM [...] patient. MAMMOGRAM ASSESSMENT: ACR 2 Benign Samantha Couch DO MAMMO Final Resu lt from Last 3 Months or Most Recently Relevant to Health Maintenance Insurance [employer] [facility] [employer] Advance Directives * Full Code (Latest Code Status on File) Date Activated Date Inactivated Comments 08/04/2021 5:56 AM 08/04/2021 5:11 PM Question Answer Comments Code Status Discussion: Not Discussed * Full Code Date Activated Date Inactivated Comments 05/12/2021 6:06 AM 05/13/2021 2:29 PM Question Answer Comments Code Status Discussion: Not Discussed Care Teams Food Server Relationship Specialty Start Date End Date [facility], [place] [address] [address] 08/04/21 Velia Mccallum, PharmD [address] [address] Pharmacology 11/03/22
[2025-06-07 16:37] VITALS: BP 120/80; PULSE 74; RESP 24; TEMP 36.3; O2SAT 90
--- NOTE | 2025-06-07 16:44 | ED.SOB ---
HPI - SOB/Dyspnea General Date Seen: 06/07/25 Chief Complaint: Shortness of Breath/Dyspnea Stated Complaint: Chest pain and pressure Time Seen by Provider: 06/07/25 16:44 History of Present Illness HPI Narrative: 59-year-old female returning to the ER today for shortness of breath. She has a history of tobacco use but quit recently. She was seen here 4 days ago on 06/[address] Moon. Per that note she had had cough for couple of weeks with worsening chest tightness and shortness of breath. Workup included CBC with a white count of 7.3, hemoglobin 16.0, platelet count 150. Sodium 139, potassium 4.6, chloride 102, bicarb 33, BUN 13, creatinine 0.9, glucose 123. Chest x-ray was negative for pneumonia or CHF or pneumothorax. She temporal was hypoxic in the ER and required nasal cannula, but was treated with DuoNeb and IV steroids and her saturations improved to around 90%. She was discharged home with prescriptions for Zithromax, Tylenol with codeine, albuterol inhaler. Medrol Dosepak. She has been taking the antibiotics and steroids and using inhaler but feels like her breathing has gotten worse for the past couple of days. Today she is having shortness of breath, tightness in her chest, dry nonproductive cough. No fever. No vomiting. No abdominal pain. No back pain. She does feel like she is retaining fluid and has developed new edema infecting both of her wrists and both of her ankles since starting on the steroids. No unilateral leg swelling. She does note that she is a former smoker and quit last week. She does have chronic trouble with sinus infections, ear infections and chronic coughs for the past couple of years. She and her daughter think that her current cough started about 2 weeks or perhaps a month ago. 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 It sounds like there was no definite illness circulating among her coworkers or residence. No definite known sick exposures. One of her coworkers have apparently had an exposure to COVID but never had any symptoms. No other recent travel. Related Data Home Medications ?Medication ?Instructions ?Recorded ?Confirmed rosuvastatin 10 mg tablet 10 mg PO QPM 12/12/22 12/12/22 trazodone 50 mg tablet PO 12/12/22 Previous Rx's ?Medication ?Instructions ?Recorded prednisone 20 mg tablet 20 mg PO BID #6 tabs 12/12/22 oxycodone 5 mg tablet 5 mg PO Q8H PRN pain #10 tabs 12/24/23 methylprednisolone 4 mg tablets in See Rx Instructions PO .COMPLEX 06/03/25 a dose pack (Medrol (Rolf)) #21 ea ipratropium 0.5 mg-albuterol 3 mg 3 ml inhalation Q2-4H PRN #90 mL 06/07/25 (2.5 mg base)/3 mL nebulization soln nebulizers (Compact Compressor #1 ea 06/07/25 Nebulizer) Allergies Allergy/AdvReac Type Severity Reaction Status Date / Time amoxicillin (From Augmentin) Allergy Verified 06/07/25 16:36 clavulanic acid (From Allergy Verified 06/07/25 16:36 [facility]mentin) [facility] History Smoking Status: Current every day smoker What tobacco products do you use: cigarettes Smoking packs per day: 1 Smoking cigarettes per day: 20.0 Years smoked: 40 Smoking pack-years: 40.00 Do you use any of these nicotine containing products: None Second hand tobacco smoke exposure: No How often do you have a drink containing alcohol: monthly or less How many standard drinks containing alcohol do you have on a typical day: 1 or 2 How often do you have six or more drinks on one occasion: Less than monthly AUDIT-C Alcohol total score: 2 Non-prescribed substance use: marijuana (any form) service: No Exam Narrative: Exam Narrative: Constitutional: Appears well-developed and well-nourished. Alert. Conversant. Anxious. Polite. HENT: Head: Atraumatic. Nose: Nose normal. Mouth/Throat: Oral mucosa is clear and moist. no trismus. Pharynx normal. Tonsils symmetric. No tonsillar enlargement, erythema, or exudate. Eyes: Conjunctivae normal. EOM normal. Pupils equal, round, and reactive to light. No scleral icterus. Neck: Normal range of motion. Neck supple. No tracheal deviation present. Cardiovascular: Normal rate, regular rhythm. No gallop. No friction rub. No murmur heard. Symmetric radial artery pulses Pulmonary/Chest: Effort normal. No stridor. No respiratory distress. . She does have Tight wheezing and very tight aeration with with poor lung sounds in both lung jasso. Abdominal: Soft No distension. No mass. No tenderness. No rebound. No guarding. Musculoskeletal: RUE: Normal range of motion. No tenderness. No deformity LUE: Normal range of motion. No tenderness. No deformity RLE: Normal range of motion. No edema. No tenderness. No deformity LLE: Normal range of motion. No edema. No tenderness. No deformity Lymph: No cervical adenopathy. Neurological: Alert and oriented to person, place, and time. Normal strength. CN II-VII intact. No sensory deficit. GCS eye subscore is 4. GCS verbal subscore is 5. GCS motor subscore is 6. Normal coordination Skin: Skin is warm and dry. No rash noted. No pallor. Normal capillary refill. Psychiatric: Normal mood. Normal affect. Const: Vital Signs, click to edit/add: Vital Signs - 24 hr 06/07/25 16:37 06/07/25 18:15 06/07/25 19:50 Temperature 97.4 F L Pulse Rate 74 82 Pulse Rate [Pulse Oximeter] 74 Respiratory Rate 24 18 18 Blood Pressure 114/76 113/72 Blood Pressure [Ri ght Upper Arm] 120/80 Pulse Oximetry 90 89 89 Oxygen Delivery Me thod Room Air Room Air Room Air 06/07/25 20:17 Temperature Pulse Rate Pulse Rate [Pulse Oximeter] Respiratory Rate Blood Pressure Blood Pressure [Ri ght Upper Arm] Pulse Oximetry 97 Oxygen Delivery Me thod Course Vital Signs Vital signs: Initial Vital Signs Respiratory Effort Normal 06/07/25 16:34 Respiratory Depth Normal 06/07/25 16:34 Respiratory Pattern Normal 06/07/25 16:34 Vital Signs Temperature 97.4 F L 06/07/25 16:37 Pulse Rate 74 06/07/25 16:37 Respiratory Rate 24 06/07/25 16:37 Blood Pressure 120/80 06/07/25 16:37 Pulse Oximetry 90 06/07/25 16:37 Oxygen Delivery Method Room Air 06/07/25 16:37 Temperature 97.4 F L 06/07/25 16:37 Pulse Rate 82 06/07/25 19:50 Respiratory Rate 18 06/07/25 19:50 Blood Pressure 113/72 06/07/25 19:50 Pulse Oximetry 97 06/07/25 20:17 Oxygen Delivery Method Room Air 06/07/25 19:50 Medications Administered Medications: Discontinued Medications Generic Name Dose Route Start Last Admin Trade Name Constantine PRN Reason Stop Dose Admin Albuterol 2.5 mg 06/07/25 19:52 06/07/25 19:58 Albuterol Sulfate 2.5 Mg/3 Ml Vial.Neb [facility] 06/07/25 19:53 2.5 mg ONCE ONE Administration Albuterol/Ipratropium 1 neb 06/07/25 17:23 06/07/25 18:21 Iprat-Albut 0.5-2.5 Mg/3 Ml [facility] 06/07/25 17:24 1 neb ONCE ONE Administration Albuterol/Ipratropium 1 [facility] 06/07/25 18:44 06/07/25 18:59 Iprat-Albut 0.5-2.5 Mg/3 Ml [facility] 06/07/25 18:45 1 neb ONCE ONE Administration Lorazepam 0.5 mg 06/07/25 17:24 06/07/25 19:03 Lorazepam 2 Mg/Ml Inj IVP 06/07/25 17:25 Not Given ONCE ONE Lorazepam 1 mg 06/07/25 19:02 06/07/25 19:06 Lorazepam 1 Mg Tablet PO 06/07/25 19:03 1 mg ONCE ONE Administration MDM - SOB/Dyspnea MDM Narrative Medical decision making narrative: This patient presents for evaluation of shortness of breath and chest tightness and cough. She had been here few days ago and diagnosed with COPD, and is currently being treating with Azithromycin, oral steroids, and albuterol inhaler. She returns today because she feels like her breathing and chest tightness or worsening. Broad differential is considered. She does definitely is wheezy and tight and we received DuoNebs here in the ER with a subsequent improvement in her breath sounds. Initial oxygen sats were around 90% on room air for a and have now come up to the low 90s. She did not require oxygen in the ER today. Of note just prior to discharge she had oxygen reading of 89%. We gave her 1 extra albuterol neb and she felt better. She feels ready to discharge home. Would recommend that she continue on her current steroids. Consider possible non wheezing cause of her chest tightness. We did check EKG and troponin to look for cardiac ischemia and they are normal. Chest x-ray is negative for any sign of pulmonary edema, pneumonia, pneumothorax, pleural effusion, rib fracture. She is low risk but not 0 risk for PE. We did check screening D-dimer and it is normal. At this point risk of radiation exposure would outweigh the benefit of a CT PA. COVID/influenza/RSV PCR is negative. There is no signs at this point of serious bacterial infection such as OM, RPA, epiglottitis, [employer], strep pharyngitis, sinusitis, meningitis, bacteremia, serious bacterial infection. She does already on Azithromycin to treat for community-acquired pneumonia and I would advise that she continue that. However it seems like her symptoms are being driven largely by flare of COPD. Discussed COPD with the patient and her family. She advised to continue abstaining from cigarettes. She will follow-up with primary care for further evaluation. There are no gastrointestinal symptoms at this point and no signs of dehydration. Close followup with primary care physician is indicated. Return to ED for fever > 103, protracted vomiting, confusion, or other worsening. Will give a prescription for nebulizer machine and albuterol nebs. She will continue on her prednisone. She does note significant uptake in anxiety and insomnia since starting on the steroids however it turns out she has been using the steroids and doses and has been taking 1 before bed each day. I advised that she take the steroid after she gets up all and a single dose once per day. She will make this change. Need for follow-up and precautions for return to the ER reviewed. She plans to follow up with the [facility]. She and her daughter have been working with her laptop computer while she is here in the ER and she has been able to establish insurance coverage and will make an appointment tomorrow. Lab Data Labs: Lab Results 06/07/25 06/07/25 06/07/25 Range/Units 16:45 17:24 17:50 WBC 11.93 H (4.50-11.00) K/uL RBC 5.24 H (4.00-5.20) m/uL Hgb 15.2 (12.0-16.0) gm/dL Hct 47.8 (33.0-51.0) % MCV 91 (80-100) fL MCH 29 (26-34) pg MCHC 32 (32-36) gm/dL RDW Coeff of Tanesha 12.6 (11.5-15.5) % Plt Count 158 (140-440) K/uL Neut % (Auto) 81.5 H (42.0-72.0) % Lymph % (Auto) 12.4 L (20-44) % [place]edar % (Auto) 5.2 (0.0-11.0) % Eos % (Auto) 0.6 (0.0-7.0) % Baso % (Auto) 0.2 (0.0-3.0) % Neut # (Auto) 9.70 H (1.7-7.0) K/uL Lymph # (Auto) 1.50 (0.90-2.90) K/uL Cedar # (Auto) 0.60 (0.00-0.90) K/UL Eos # (Auto) 0.10 (0.00-0.50) K/uL Baso # (Auto) 0.00 (0.00-0.30) K/uL Abs Immat Gran (auto) 0.00 (0.00-0.30) K/uL Imm/Tot Granulo (auto) 0.1 % D-Dimer Quant (PE/DVT) 0.28 (0.00-0.50) ug/ml VBG pH 7.390 (7.32-7.43) VBG pCO2 52 H (40-50) mmHG VBG pO2 56.3 H (25-47) mmHG VBG HCO3 32 H (21-28) mmol/L Sodium 138 (135-149) mmol/L Potassium 4.1 (3.6-5.1) mmol/L Chloride 97 (96-114) mmol/L Carbon Dioxide 31 (20-32) mmol/L Anion Gap 10 (7-15) mEq/L BUN 24 (7-30) mg/dL Creatinine 0.8 (0.5-1.5) mg/dL Estimated GFR 85 ml/min Glucose 103 (60-115) mg/dL Lactate 1.3 (0.5-1.9) mmol/L Calcium 8.6 (8.4-10.6) mg/dL Urine Color Yellow (Yellow) Urine Appearance Cloudy A (Clear) Urine pH 6.0 (5.0-8.5) Ur Specific [place] 1.025 (1.000-1.030) Urine Protein 1+ A (Negative) Urine Glucose (UA) Negative (Negative) Urine Ketones Negative (Negative) Urine Blood Negative (Negative) Urine Nitrite Negative (Negative) Urine Bilirubin Negative (Negative) Urine Urobilinogen 0.2 (0.2-1.0) Ur Leukocyte Esterase 1+ A (Negative) Urine RBC 0-2 (0-2) Urine WBC 5-10 A (0-5) Ur Squamous Epith Cells Few (None-Few) Urine Bacteria Few A (None) SARS-CoV-2 (PCR) Negative SARS-CoV-2 (Negative) Influenza Type A (PCR) Negative PCR FLU A (Negative) Influenza Type B (PCR) Negative PCR FLU B (Negative) RSV (PCR) Negative PCR RSV (Negative) POC Troponin I 0.00 L (0.01-0.04) ng/ml Imaging Data Chest x-ray: Attestation: I have reviewed the pertinent imaging results. Radiologist's impression: IMPRESSION: Normal chest radiographs. ECG Data Attestation: I personally reviewed and interpreted this ECG as follows: Interpretation: Normal sinus rhythm Rate 70 TN interval 154 Normal QRS axis. No ST segment elevation or Depression. QTC 380, QTC 410 Discharge Plan Discharge Clinical Impression: COPD exacerbation Patient Disposition: Home, Self-Care Condition: Stable Instructions: COPD (Chronic Obstructive Pulmonary Disease) (DC) Additional Instructions: As we discussed, please continue on your antibiotics and your steroids. You can not continue to use your albuterol inhaler 2 puffs every 2-4 hours as needed. You can also use the nebulizer machine with 1 treatment every 2-4 hours if needed. Please come back to the ER right away if you have worsening trouble breathing that does not respond to your inhaler or nebulizer , worsening chest tightness, high fever, bloody cough, or any concerns. Even if you are getting better, please follow-up with your regular primary care provider next week for repeat examination. You may need to start on some long-term medications to keep your COPD from flaring up. If you need to find a new primary care provider, you can make an appointment with the [facility] primary care clinic . you can call [phone] to schedule an ER follow-up visit.. Prescriptions: New (DME) nebulizers [Compact Compressor Nebulizer] Misc See Rx Instructions .Route Qty: 1 0RF Rx Instructions: As directed ipratropium-albuterol 0.5 mg-3 mg(2.5 mg base)/3 mL solution for nebulization 3 ml inhalation Q2-4H PRNQty: 90 0RF Rx Instructions: until breathing returns to target peak flow/parameters No Action oxycodone 5 mg tablet 5 mg PO Q8H PRN (Reason: pain) Qty: 10 0RF trazodone 50 mg tablet PO rosuvastatin 10 mg tablet 10 mg PO QPM prednisone 20 mg tablet 20 mg PO BID Qty: 6 0RF methylprednisolone [Medrol (Rolf)] 4 mg tablets,dose pack See Rx Instructions .ROUTE .COMPLEX Qty: 21 0RF Rx Instructions: orally per package directions Follow Up/Referrals: MYLA RAYGOZA DO [Primary Care Provider, Family Practice] [facility] Inst[facility] Procedures ABG Interpretation ABG Results: 06/07/25 17:50 VBG pH 7.390 VBG pCO2 52 H VBG pO2 56.3 H VBG HCO3 32 H
[2025-06-07 17:47] LABS: Appearance Urine Cloudy (Clear)
[2025-06-07 18:00] LABS: HCO3 VBG 32 mmol/L (21-28); Lactate* 1.3 mmol/L (0.5-1.9); PCO2 VBG 52 mmHG (40-50); PO2 VBG 56.3 mmHG (25-47); pH VBG 7.390 (7.32-7.43)
[2025-06-07 18:04] LABS: Hematocrit* 47.8 % (33.0-51.0); Hemoglobin* 15.2 gm/dL (12.0-16.0); Immature Granulocytes Pct Auto 0.1 %; Mean Corpuscular HGB Conc 32 gm/dL (32-36); Mean Corpuscular Hemoglobin 29 pg (26-34); Mean Corpuscular Volume 91 fL (80-100); RDW Coefficient of Variation % 12.6 % (11.5-15.5); Red Blood Count* 5.24 m/uL (4.00-5.20); White Blood Count* 11.93 K/uL (4.50-11.00)
[2025-06-07 18:15] VITALS: BP 114/76; PULSE 74; RESP 18; O2SAT 89
[2025-06-07 18:16] LABS: Chloride* 97 mmol/L (96-114); Potassium* 4.1 mmol/L (3.6-5.1); Sodium* 138 mmol/L (135-149)
[2025-06-07 18:17] LABS: Troponin, Point-of-Care* 0.00 ng/ml (0.01-0.04)
[2025-06-07 18:19] LABS: Anion Gap 10 mEq/L (7-15); Blood Urea Nitrogen* 24 mg/dL (7-30); Calcium* 8.6 mg/dL (8.4-10.6); Carbon Dioxide* 31 mmol/L (20-32); Creatinine* 0.8 mg/dL (0.5-1.5); Estimated Glomerular Filt Rate 85 ml/min; Glucose* 103 mg/dL (60-115)
[2025-06-07 18:20] LABS: PCR FLU A Negative PCR FLU A (Negative); PCR FLU B Negative PCR FLU B (Negative); PCR RSV Negative PCR RSV (Negative); SARS PCR* Negative SARS-CoV-2 (Negative)
[2025-06-07 18:20] LABS: D Dimer Quantitative* 0.28 ug/ml (0.00-0.50)
[2025-06-07] MEDS: IPRAT-ALBUT 0.5-2.5 MG/3 ML NEB 1 NEB IH ×2 (18:21→18:59)
[2025-06-07 18:24] LABS: Immature Granulocytes Abs Auto 0.00 K/uL (0.00-0.30); Lymphocytes Absolute Auto 1.50 K/uL (0.90-2.90); Slide Review Reflex No
--- NOTE | 2025-06-07 18:33 | CRLHL7_ITS ---
For Patients: As a result of the Century Cures Act, medical imaging exams and procedure reports are released immediately into your electronic medical record. You may view this report before your referring provider. If you have questions, please contact your health care provider. INDICATION: Cough and worsening shortness of breath COMPARISON: 06/03/2025 TECHNIQUE: PA and lateral 2 view chest. FINDINGS: Lung volumes are good. No focal or diffuse opacities. No pulmonary edema. No pleural effusion. No pneumothorax. No pneumomediastinum. Normal cardiomediastinal silhouette. Bones: Lower cervical ACDF. IMPRESSION: Normal chest radiographs. Dictated by Lexis Squires MD @ 06/07/2025 7:30:09 PM (Electronically Signed)
[2025-06-07 19:50] VITALS: BP 113/72; PULSE 82; RESP 18; O2SAT 89
[2025-06-07] MEDS: ALBUTEROL SULFATE 2.5 MG/3 ML VIAL.NEB NEB (19:58)
[2025-06-07 20:17] VITALS: O2SAT 97
--- NOTE | 2025-06-08 11:51 | ED.NURSE ---
Pt called ED, stating [facility] unable to fill Nebulizer machine rx. Rx called to [facility], spoke with Pharmacist Joss. Pt called back and informed, no further questions at this time.
== END 2025-06-07 20:18 | disposition home or self-care (01) ==
PROVIDERS: Emergency Provider Emergency Medicine; PCP Student in an Organized Health Care Education/Training Program
DX: J44.1 Chronic obstructive pulmonary disease with (acute) exacerbation (principal); Z87.891 Personal history of nicotine dependence
CPT/HCPCS: 36415; 71046; 80048; 81001; 82803; 83605; 84484; 85025; 85379; 87086; 87631; 93005; 94640; 99284; 99285; A9270